=== PATIENT | male | born 1985 | race Caucasian/White ===

== ENCOUNTER 2021-05-13 21:34 | Emergency (ER) | payer MEDICARE | END 2021-05-13 23:54 | disposition home or self-care (01) | LOC: CSHERS 21:34 | DX: R21 Rash and other nonspecific skin eruption (principal) | CPT/HCPCS: 99282 ==

== ENCOUNTER 2021-10-16 09:17 | Outpatient (CLI) | payer MEDICARE | END 2021-10-16 09:18 | disposition home or self-care (01) | LOC: CSHWCC 09:17 | PROVIDERS: ATTEND Nurse Practitioner Family | DX: L89.214 Pressure ulcer of right hip, stage 4 (principal) | CPT/HCPCS: 11043; 97139; 97607; G0463; 99203 ==

== ENCOUNTER 2021-10-29 15:09 | Outpatient (CLI) | payer MEDICARE | END 2021-10-29 15:10 | disposition home or self-care (01) | LOC: CSHWCC 15:09 | PROVIDERS: ATTEND Nurse Practitioner Family | DX: L89.214 Pressure ulcer of right hip, stage 4 (principal) ==

== ENCOUNTER 2021-11-05 15:21 | Outpatient (CLI) | payer MEDICARE | END 2021-11-05 15:22 | disposition home or self-care (01) | LOC: CSHWCC 15:21 | PROVIDERS: ATTEND Nurse Practitioner Family | DX: L89.214 Pressure ulcer of right hip, stage 4 (principal) | CPT/HCPCS: 97607 ==

== ENCOUNTER 2021-11-21 09:21 | Outpatient (CLI) | payer MEDICARE | END 2021-11-21 09:22 | disposition home or self-care (01) | LOC: CSHWCC 09:21 | PROVIDERS: ATTEND Nurse Practitioner Family | DX: L89.214 Pressure ulcer of right hip, stage 4 (principal) | CPT/HCPCS: 87070; 87077; 87186; 87205; 97607; 99212; G0463 ==

== ENCOUNTER 2021-11-27 14:59 | Outpatient (CLI) | payer MEDICARE | END 2021-11-27 15:00 | disposition home or self-care (01) | LOC: CSHWCC 14:59 | PROVIDERS: ATTEND Preventive Medicine Undersea and Hyperbaric Medicine | DX: L89.214 Pressure ulcer of right hip, stage 4 (principal) ==

== ENCOUNTER 2021-12-11 12:59 | Outpatient (CLI) | payer MEDICARE | END 2021-12-11 13:00 | disposition home or self-care (01) | LOC: CSHWCC 12:59 | PROVIDERS: ATTEND Preventive Medicine Undersea and Hyperbaric Medicine | DX: L89.214 Pressure ulcer of right hip, stage 4 (principal); L89.153 Pressure ulcer of sacral region, stage 3 ==

== ENCOUNTER 2022-01-01 13:01 | Outpatient (CLI) | payer MEDICARE, MEDICAID | END 2022-01-01 13:02 | disposition home or self-care (01) | LOC: CSHWCC 13:01 | PROVIDERS: ATTEND Preventive Medicine Undersea and Hyperbaric Medicine | DX: L89.214 Pressure ulcer of right hip, stage 4 (principal); L89.153 Pressure ulcer of sacral region, stage 3; L89.012 Pressure ulcer of right elbow, stage 2 ==

== ENCOUNTER 2022-03-06 08:16 | Outpatient (CLI) | payer MEDICARE, MEDICAID | END 2022-03-06 08:17 | disposition home or self-care (01) | LOC: CSHWCC 08:16 | PROVIDERS: ATTEND Nurse Practitioner Family | DX: L89.214 Pressure ulcer of right hip, stage 4 (principal); L89.153 Pressure ulcer of sacral region, stage 3; L89.012 Pressure ulcer of right elbow, stage 2 | CPT/HCPCS: 11043; 87070; 87077; 87186; 87205; 97139; 97605; G0463; 99213 ==

== ENCOUNTER 2022-03-19 14:17 | Outpatient (CLI) | payer MEDICARE, MEDICAID | END 2022-03-19 14:18 | disposition home or self-care (01) | LOC: CSHWCC 14:17 | PROVIDERS: ATTEND Nurse Practitioner Family | DX: L89.154 Pressure ulcer of sacral region, stage 4 (principal); L89.214 Pressure ulcer of right hip, stage 4; L89.014 Pressure ulcer of right elbow, stage 4 ==

== ENCOUNTER 2022-03-30 04:04 | Emergency (ER) | payer MEDICARE, MEDICAID | END 2022-03-30 08:05 | disposition home or self-care (01) | LOC: CSHERS 04:04 | DX: T83.018A Breakdown (mechanical) of other urinary catheter, initial encounter (principal); E86.0 Dehydration; F17.220 Nicotine dependence, chewing tobacco, uncomplicated | CPT/HCPCS: 51702; 96360; 96361 ==

== ENCOUNTER 2022-04-03 18:47 | Emergency (ER) | payer MEDICARE, MEDICAID ==
[2022-04-03] MEDS ORDERED: Lidocaine Viscous Sol 2% 15 ml UD Cup ONE (20:37)
[2022-04-03] MEDS ORDERED: Lidocaine 4% Topical Sol 50 ML BOT ONE (21:46)
[2022-04-03] MEDS ORDERED: Lidocaine 2% 6 ML SYR ONE (21:46)
[2022-04-03] MEDS ORDERED: Meropenem 500 MG VIAL ONE (21:53)
[2022-04-03] MEDS ORDERED: Iopamidol 30 ML ONE (22:13)
== END 2022-04-03 21:34 | disposition admitted as inpatient to this hospital (09) ==
LOC: CSHERS 18:47
PROC: 0T7D8DZ Dilation of Urethra with Intraluminal Device, Via Natural or Artificial Opening Endoscopic (ICD-10-PCS; principal; 2022-04-03)
PROC: BT0BZZZ Plain Radiography of Bladder and Urethra (ICD-10-PCS; principal; 2022-04-03)
DX: T83.028A Displacement of other urinary catheter, initial encounter (principal); F17.220 Nicotine dependence, chewing tobacco, uncomplicated
CPT/HCPCS: 51600; 52282; 74430; 99285; C1769; 51702; J2185; Q9967

== ENCOUNTER 2022-04-07 20:36 | Inpatient (IN) | payer MEDICARE, MEDICAID ==
[~2022-04-07 20:36] MED LIST: Iopamidol 300 61% 100 ML VIAL FS ONE
[2022-04-07 22:21] LABS: #Monocytes 0.8 10x3/uL (0.0-1.1); #Neutrophils 6.1 10x3/uL (1.5-8.4); %Basophils 0.2 % (0.0-2.0); %Eosinophils 0.1 % (0.0-6.0); %Lymphocytes 25.3 % (18.0-47.0); %Monocytes 8.2 % (0.0-10.0); Hemoglobin 13.8 g/dL (13.5-17.5); Mean Corpuscular HGB CONC 32.2 g/dL (32.0-36.0); Mean Corpuscular Hemoglobin 24.7 pg (27.0-33.0); Mean Corpuscular Volume 76.9 fl (81.2-95.1); Mean Platelet Volume 9.4 fl (7.4-10.4); Platelet Count 348 10x3/uL (150-450); RBC Distribution Width 18.4 % (11.5-14.5); Red Blood Cell (RBC) Count 5.58 10x6/uL (4.32-5.72); White Blood Cell (WBC) Count 9.2 10x3/uL (3.5-10.5)
[2022-04-07 22:35] LABS: ALT (SGPT) 10 U/L (8-55); AST (SGOT) 19 U/L (5-34); Albumin 3.4 g/dL (3.5-5.0); Alkaline Phosphatase 125 U/L (40-110); Anion Gap 11 mmol/L (10-20); BUN (Urea Nitrogen) 10 mg/dL (8.9-20.6); Bilirubin, Total 0.2 mg/dL (0.2-1.2); Calc. Creatinine Clearance 0 mL/min (70-130); Carbon Dioxide 28 mmol/L (22-29); Chloride 104 mmol/L (98-107); Estimated GFR 115; Globulin 4.4 g/dL (2.4-3.5); Glucose 114 mg/dL (70-105); Potassium 3.8 mmol/L (3.5-5.1); Protein, Total 7.8 g/dL (6.0-8.3); Sodium 139 mmol/L (136-145)
[2022-04-07] MEDS ORDERED: cefTRIAXone\\ROCEPHIN 1 GM VIAL ONE (23:28)
[2022-04-07] MEDS ORDERED: Morphine 4 MG/ML VIAL ONE (23:28)
[2022-04-08] MEDS ORDERED: Vancomycin HCl 500 MG VIAL ONE (00:52)
[2022-04-08] MEDS ORDERED: Vancomycin 1 GM VIAL ONE (00:52)
[2022-04-08] MEDS ORDERED: Acetaminophen 325 MG TAB PO PRN (03:39)
[2022-04-08] MEDS ORDERED: Zolpidem Tartrate 5 MG TAB PO PRN (03:39)
[2022-04-08] MEDS ORDERED: Calcium Carbonate 500 MG ChewTAB PO PRN (03:39)
[2022-04-08] MEDS ORDERED: Guaifenesin DM 100-10/5 ML UDCUP PO PRN (03:39)
[2022-04-08] MEDS ORDERED: Senokot S 8.6-50 MG TAB PO PRN (03:39)
[2022-04-08] MEDS ORDERED: Ondansetron PF 4 MG/2 ML Vial IVP PRN (03:39)
[2022-04-08 04:59] VITALS: BMI 24.9
[2022-04-08] MEDS ORDERED: Pharmacy to Dose ABX/VANCOMYCIN IVPB PRN (05:05)
[2022-04-08] MEDS: Morphine 2 MG/ML VIAL SLOW IVP PRN ×4 (05:30→20:50)
[2022-04-08 06:36] LABS: SARS-CoV-2 NAA Rapid Test Not Detected (NotDetected)
[2022-04-08 08:13] LABS: CRP (Inflammatory) 3.11 mg/dL (= or < 0.5)
[2022-04-08] MEDS ORDERED: Cefepime 1 GM in Sodium Chloride 0.9% 100 ML IVPB SCH (09:00)
[2022-04-08] MEDS ORDERED: Baclofen 10 MG TAB PO SCH ×2 (09:00→11:30)
[2022-04-08] MEDS: Famotidine 20 MG TAB PO SCH ×2 (09:09→23:43)
[2022-04-08] MEDS: Gabapentin 300 MG CAP PO SCH ×2 (09:09→20:49)
[2022-04-08] MEDS: HYDROcodone/Acetaminophen 5/325 mg Tablet PO PRN ×2 (11:48→17:40)
[2022-04-08] MEDS: Vancomycin 1.5 GRAM/300 ML BAG 1.5 GM in Premix Bag 1 BAG IVPB SCH (12:00)
[2022-04-08] MEDS: Baclofen 10 MG TAB PO SCH ×2 (14:39→20:50)
[2022-04-08] MEDS ORDERED: Piperacillin/Tazobactam 3.375 GM in Sodium Chloride 0.9% 100 ML IVPB SCH ×2 (17:15→18:00)
[2022-04-08] MEDS: traZODone HCl 50 MG TAB PO PRN (20:49)
[2022-04-08] MEDS: Lorazepam 0.5 MG TAB PO PRN (20:50)
[2022-04-08] MEDS: Piperacillin/Tazobactam 3.375 GM in Sodium Chloride 0.9% 100 ML IVPB SCH (23:44)
[2022-04-09] MEDS: Morphine 2 MG/ML VIAL SLOW IVP PRN ×4 (04:30→18:18)
[2022-04-09] MEDS: Vancomycin 1.5 GRAM/300 ML BAG 1.5 GM in Premix Bag 1 BAG IVPB SCH (04:31)
[2022-04-09] MEDS: Piperacillin/Tazobactam 3.375 GM in Sodium Chloride 0.9% 100 ML IVPB SCH ×3 (06:33→21:21)
[2022-04-09] MEDS: Gabapentin 300 MG CAP PO SCH ×2 (09:50→21:21)
[2022-04-09] MEDS: Famotidine 20 MG TAB PO SCH ×2 (09:51→21:22)
[2022-04-09] MEDS: Baclofen 10 MG TAB PO SCH ×3 (09:51→21:22)
[2022-04-09] MEDS ORDERED: Lidocaine 1% PF 5 ML VIAL ONE (13:01)
[2022-04-09] MEDS ORDERED: Sodium Bicarbonate 2.5 MEQ/5 ML VIAL ONE (13:01)
[2022-04-09 13:53] LABS: Vancomycin, Trough 29.3 ug/mL
[2022-04-09 13:55] LABS: ALT (SGPT) 11 U/L (8-55); AST (SGOT) 21 U/L (5-34); Albumin 3.1 g/dL (3.5-5.0); Alkaline Phosphatase 118 U/L (40-110); Anion Gap 13 mmol/L (10-20); BUN (Urea Nitrogen) 8 mg/dL (8.9-20.6); Bilirubin, Total 0.3 mg/dL (0.2-1.2); Calc. Creatinine Clearance 175 mL/min (70-130); Calcium 8.8 mg/dL (7.8-10.44); Carbon Dioxide 28 mmol/L (22-29); Chloride 104 mmol/L (98-107); Estimated GFR 118; Globulin 3.7 g/dL (2.4-3.5); Glucose 95 mg/dL (70-105); Potassium 4.6 mmol/L (3.5-5.1); Protein, Total 6.8 g/dL (6.0-8.3); Sodium 140 mmol/L (136-145)
[2022-04-09 14:09] LABS: Hemoglobin 12.1 g/dL (13.5-17.5); MDiff Complete? YES; Manual Diff?? YES; Mean Corpuscular HGB CONC 30.9 g/dL (32.0-36.0); Mean Corpuscular Hemoglobin 24.3 pg (27.0-33.0); Mean Corpuscular Volume 78.7 fl (81.2-95.1); Mean Platelet Volume 9.6 fl (7.4-10.4); Platelet Count 249 10x3/uL (150-450); Red Blood Cell (RBC) Count 4.98 10x6/uL (4.32-5.72)
[2022-04-09 14:12] LABS: Band 1 % (5-11); Eosinophils 2 % (0-10); Lymphocytes 25 % (21-51); Monocytes 11 % (0-10); Neutrophil 53 % (42-75); Reactive Lymphocytes 8 % (0-10)
[2022-04-09 14:13] LABS: Anisocytosis SLIGHT = 6-15 cells (100X) (0-5/hpf); Platelet Morphology Comment Appears Adequate
[2022-04-09 14:14] LABS: Macrocytosis SLIGHT = 6-15 cells (100X) (0-5/hpf); Microcytosis SLIGHT = 6-15 cells (100X) (0-5/hpf); Stomatocytes SLIGHT = 2-5 cells (100X) (0-1/hpf); Target Cells SLIGHT = 2-5 cells (100X) (0-1/hpf)
[2022-04-09] MEDS: Lorazepam 0.5 MG TAB PO PRN (21:23)
[2022-04-09] MEDS: traZODone HCl 50 MG TAB PO PRN (21:23)
[2022-04-09] MEDS ORDERED: Morphine 4 MG/ML VIAL SLOW IVP SCH (22:45)
[2022-04-10] MEDS: Morphine 2 MG/ML VIAL SLOW IVP PRN ×3 (04:32→22:04)
[2022-04-10 04:46] LABS: Vancomycin, Random 10.2 ug/mL (See Comment)
[2022-04-10] MEDS: Piperacillin/Tazobactam 3.375 GM in Sodium Chloride 0.9% 100 ML IVPB SCH ×3 (06:32→22:00)
[2022-04-10] MEDS: Vancomycin HCl 1 GM in Sodium Chloride 0.9% 250 ML 250 ML IVPB SCH ×2 (06:33→16:57)
[2022-04-10] MEDS: Famotidine 20 MG TAB PO SCH ×3 (09:28→22:06)
[2022-04-10] MEDS: Gabapentin 300 MG CAP PO SCH ×2 (09:28→21:59)
[2022-04-10] MEDS: Baclofen 10 MG TAB PO SCH ×3 (09:29→21:59)
[2022-04-10] MEDS ORDERED: Morphine 4 MG/ML VIAL SLOW IVP SCH (09:30)
[2022-04-10] MEDS: oxyCODONE 5 MG TAB PO PRN ×2 (12:18→16:56)
[2022-04-10] MEDS: traZODone HCl 50 MG TAB PO PRN (22:29)
[2022-04-10] MEDS: Lorazepam 0.5 MG TAB PO PRN (22:29)
[2022-04-11] MEDS: Vancomycin HCl 1 GM in Sodium Chloride 0.9% 250 ML 250 ML IVPB SCH ×2 (04:25→16:58)
[2022-04-11] MEDS: Morphine 2 MG/ML VIAL SLOW IVP PRN ×5 (04:26→22:12)
[2022-04-11 04:40] LABS: #Eosinphils 0.2 10x3/uL (0.0-0.5); #Monocytes 0.7 10x3/uL (0.0-1.1); #Neutrophils 3.4 10x3/uL (1.5-8.4); %Basophils 0.1 % (0.0-2.0); %Eosinophils 3.1 % (0.0-6.0); %Lymphocytes 40.1 % (18.0-47.0); %Monocytes 9.1 % (0.0-10.0); %Neutrophils 47.5 % (40.0-75.0); Hemoglobin 11.5 g/dL (13.5-17.5); Mean Corpuscular HGB CONC 30.8 g/dL (32.0-36.0); Mean Corpuscular Hemoglobin 24.3 pg (27.0-33.0); Mean Corpuscular Volume 78.7 fl (81.2-95.1); Mean Platelet Volume 9.6 fl (7.4-10.4); Platelet Count 244 10x3/uL (150-450); RBC Distribution Width 17.7 % (11.5-14.5); Red Blood Cell (RBC) Count 4.74 10x6/uL (4.32-5.72); White Blood Cell (WBC) Count 7.1 10x3/uL (3.5-10.5)
[2022-04-11] MEDS: Piperacillin/Tazobactam 3.375 GM in Sodium Chloride 0.9% 100 ML IVPB SCH ×3 (04:41→21:22)
[2022-04-11 04:54] LABS: Anion Gap 12 mmol/L (10-20); BUN (Urea Nitrogen) 9 mg/dL (8.9-20.6); Calc. Creatinine Clearance 175 mL/min (70-130); Calcium 8.8 mg/dL (7.8-10.44); Carbon Dioxide 28 mmol/L (22-29); Chloride 104 mmol/L (98-107); Estimated GFR 118; Glucose 99 mg/dL (70-105); Potassium 4.3 mmol/L (3.5-5.1); Sodium 140 mmol/L (136-145)
[2022-04-11] MEDS: Gabapentin 300 MG CAP PO SCH ×2 (07:24→21:23)
[2022-04-11] MEDS: Baclofen 10 MG TAB PO SCH ×3 (07:24→21:24)
[2022-04-11] MEDS: oxyCODONE 5 MG TAB PO PRN ×4 (07:25→21:29)
[2022-04-11] MEDS: Famotidine 20 MG TAB PO SCH ×2 (07:36→21:55)
[2022-04-11] MEDS: traZODone HCl 50 MG TAB PO PRN (22:13)
[2022-04-11] MEDS: Lorazepam 0.5 MG TAB PO PRN (22:13)
[2022-04-12] MEDS: Morphine 2 MG/ML VIAL SLOW IVP PRN ×5 (02:50→21:05)
[2022-04-12] MEDS: oxyCODONE 5 MG TAB PO PRN ×5 (04:05→22:40)
[2022-04-12] MEDS: Piperacillin/Tazobactam 3.375 GM in Sodium Chloride 0.9% 100 ML IVPB SCH ×3 (05:10→22:41)
[2022-04-12 05:22] LABS: Vancomycin, Trough 16.1 ug/mL
[2022-04-12] MEDS: Vancomycin HCl 1 GM in Sodium Chloride 0.9% 250 ML 250 ML IVPB SCH ×2 (05:38→17:05)
[2022-04-12] MEDS: Baclofen 10 MG TAB PO SCH ×4 (07:50→20:48)
[2022-04-12] MEDS: Gabapentin 300 MG CAP PO SCH ×3 (07:50→20:46)
[2022-04-12] MEDS: Famotidine 20 MG TAB PO SCH ×2 (08:45→20:48)
[2022-04-12] MEDS: traZODone HCl 50 MG TAB PO PRN (21:01)
[2022-04-12] MEDS: Lorazepam 0.5 MG TAB PO PRN (21:01)
[2022-04-13] MEDS: Vancomycin HCl 1 GM in Sodium Chloride 0.9% 250 ML 250 ML IVPB SCH (06:20)
[2022-04-13] MEDS: Piperacillin/Tazobactam 3.375 GM in Sodium Chloride 0.9% 100 ML IVPB SCH ×3 (06:20→21:36)
[2022-04-13] MEDS: Morphine 2 MG/ML VIAL SLOW IVP PRN ×3 (06:21→16:18)
[2022-04-13] MEDS: Famotidine 20 MG TAB PO SCH ×2 (09:45→21:46)
[2022-04-13] MEDS: Gabapentin 300 MG CAP PO SCH ×3 (09:45→21:21)
[2022-04-13] MEDS: Baclofen 10 MG TAB PO SCH ×3 (09:46→18:19)
[2022-04-13] MEDS: oxyCODONE 5 MG TAB PO PRN ×2 (09:46→21:34)
[2022-04-13] MEDS ORDERED: Lidocaine 2% 6 ML SYR TOP PRN (10:44)
[2022-04-13] MEDS: Vancomycin HCl 750 MG in Sodium Chloride 0.9% 250 ML 250 ML IVPB SCH (18:19)
[2022-04-14] MEDS: Baclofen 10 MG TAB PO SCH ×4 (01:14→17:24)
[2022-04-14] MEDS: Morphine 2 MG/ML VIAL SLOW IVP PRN ×5 (01:20→21:47)
[2022-04-14] MEDS: Vancomycin HCl 750 MG in Sodium Chloride 0.9% 250 ML 250 ML IVPB SCH ×2 (05:42→17:18)
[2022-04-14] MEDS: Piperacillin/Tazobactam 3.375 GM in Sodium Chloride 0.9% 100 ML IVPB SCH ×3 (08:32→21:46)
[2022-04-14] MEDS: Gabapentin 300 MG CAP PO SCH ×3 (08:34→21:45)
[2022-04-14] MEDS: Famotidine 20 MG TAB PO SCH ×3 (08:34→21:57)
[2022-04-14] MEDS: oxyCODONE 5 MG TAB PO PRN (12:44)
[2022-04-14] MEDS: Lorazepam 0.5 MG TAB PO PRN (21:46)
[2022-04-14] MEDS: traZODone HCl 50 MG TAB PO PRN (21:46)
[2022-04-15] MEDS: Baclofen 10 MG TAB PO SCH ×4 (01:23→18:28)
[2022-04-15] MEDS: Morphine 2 MG/ML VIAL SLOW IVP PRN ×3 (05:26→18:25)
[2022-04-15 05:40] LABS: Vancomycin, Trough 15.2 ug/mL
[2022-04-15] MEDS: Vancomycin HCl 750 MG in Sodium Chloride 0.9% 250 ML 250 ML IVPB SCH ×2 (05:59→18:25)
[2022-04-15] MEDS: Piperacillin/Tazobactam 3.375 GM in Sodium Chloride 0.9% 100 ML IVPB SCH ×3 (07:19→22:36)
[2022-04-15] MEDS: Gabapentin 300 MG CAP PO SCH ×3 (07:59→20:04)
[2022-04-15] MEDS: oxyCODONE 5 MG TAB PO PRN ×2 (08:01→13:50)
[2022-04-15] MEDS: Famotidine 20 MG TAB PO SCH ×2 (08:02→20:07)
[2022-04-15] MEDS ORDERED: Naloxone HCl 0.4 mg/ml Vial IV PRN (18:12)
[2022-04-15] MEDS ORDERED: Piperacillin/Tazobactam 3.375 GM VIAL ONE (19:59)
[2022-04-15] MEDS ORDERED: Sodium Chloride 0.9% 100 ML ONE (19:59)
[2022-04-15] MEDS: oxyCODONE 5 MG TAB PO SCH (20:04)
[2022-04-15] MEDS: Lorazepam 0.5 MG TAB PO PRN (20:12)
[2022-04-15] MEDS: traZODone HCl 50 MG TAB PO PRN (20:12)
[2022-04-16] MEDS: Morphine 2 MG/ML VIAL SLOW IVP PRN ×4 (01:33→23:33)
[2022-04-16] MEDS: Baclofen 10 MG TAB PO SCH ×4 (01:34→18:41)
[2022-04-16] MEDS: oxyCODONE 5 MG TAB PO SCH ×4 (02:55→22:36)
[2022-04-16] MEDS: Piperacillin/Tazobactam 3.375 GM in Sodium Chloride 0.9% 100 ML IVPB SCH ×3 (05:48→22:37)
[2022-04-16] MEDS: Vancomycin HCl 750 MG in Sodium Chloride 0.9% 250 ML 250 ML IVPB SCH ×2 (05:49→18:41)
[2022-04-16] MEDS: Famotidine 20 MG TAB PO SCH ×2 (07:31→22:36)
[2022-04-16] MEDS: Gabapentin 300 MG CAP PO SCH ×3 (10:11→22:36)
[2022-04-16 17:34] LABS: Vancomycin, Trough 14.8 ug/mL
[2022-04-16] MEDS: traZODone HCl 50 MG TAB PO PRN (22:37)
[2022-04-16] MEDS: Lorazepam 0.5 MG TAB PO PRN (22:37)
[2022-04-17] MEDS: Baclofen 10 MG TAB PO SCH ×4 (01:13→19:38)
[2022-04-17] MEDS: oxyCODONE 5 MG TAB PO SCH ×4 (02:39→20:47)
[2022-04-17] MEDS: Piperacillin/Tazobactam 3.375 GM in Sodium Chloride 0.9% 100 ML IVPB SCH ×3 (05:27→21:49)
[2022-04-17] MEDS: Vancomycin HCl 750 MG in Sodium Chloride 0.9% 250 ML 250 ML IVPB SCH ×2 (05:28→19:37)
[2022-04-17] MEDS: Famotidine 20 MG TAB PO SCH ×3 (07:53→20:48)
[2022-04-17] MEDS: Gabapentin 300 MG CAP PO SCH ×3 (07:55→20:46)
[2022-04-17] MEDS: Morphine 2 MG/ML VIAL SLOW IVP PRN (09:21)
[2022-04-17] MEDS: traZODone HCl 50 MG TAB PO PRN (20:53)
[2022-04-17] MEDS: Lorazepam 0.5 MG TAB PO PRN (20:53)
[2022-04-18] MEDS: Baclofen 10 MG TAB PO SCH ×3 (01:31→14:18)
[2022-04-18] MEDS: oxyCODONE 5 MG TAB PO SCH ×2 (01:33→07:33)
[2022-04-18] MEDS: Vancomycin HCl 750 MG in Sodium Chloride 0.9% 250 ML 250 ML IVPB SCH (05:39)
[2022-04-18] MEDS: Piperacillin/Tazobactam 3.375 GM in Sodium Chloride 0.9% 100 ML IVPB SCH (07:17)
[2022-04-18] MEDS: Gabapentin 300 MG CAP PO SCH ×2 (09:06→09:09)
[2022-04-18] MEDS: Famotidine 20 MG TAB PO SCH (09:07)
[2022-04-18] MEDS: Morphine 2 MG/ML VIAL SLOW IVP PRN (09:15)
[2022-04-18 11:01] VITALS: BP 128/68; TEMP 98.4
== END 2022-04-18 10:37 | disposition short-term general hospital (02) | DRG 539 ==
LOC: CSHERS 20:36 → CSHTELE 04-08 04:01
PROVIDERS: ADMIT Student in an Organized Health Care Education/Training Program; ATTEND Family Medicine
PROC: 02HV33Z Insertion of Infusion Device into Superior Vena Cava, Percutaneous Approach (ICD-10-PCS; principal; 2022-04-09)
PROC: B5181ZA Fluoroscopy of Superior Vena Cava using Low Osmolar Contrast, Guidance (ICD-10-PCS; 2022-04-09)
PROC: B548ZZA Ultrasonography of Superior Vena Cava, Guidance (ICD-10-PCS; 2022-04-09)
DX: M86.151 Other acute osteomyelitis, right femur (principal); L89.013 Pressure ulcer of right elbow, stage 3; L89.214 Pressure ulcer of right hip, stage 4; G82.20 Paraplegia, unspecified; N31.9 Neuromuscular dysfunction of bladder, unspecified; G89.4 Chronic pain syndrome; Z20.822 Contact with and (suspected) exposure to COVID-19; L89.152 Pressure ulcer of sacral region, stage 2; Z98.890 Other specified postprocedural states
CPT/HCPCS: 36415; 36569; 72193; 80048; 80053; 80202; 83605; 85025; 85652; 86140; 87040; 87086; 87811; 96365; 96366; 96375; 97139; C1751; J0692; J0696; J1650; J2270; J2272; J2543; J3370; J3490; J7050; Q9967; U0002

== ENCOUNTER 2022-05-26 13:04 | Outpatient (CLI) | payer MEDICARE, MEDICAID | END 2022-05-26 13:05 | disposition home or self-care (01) | LOC: CSHWCC 13:04 | PROVIDERS: ATTEND Nurse Practitioner Family | DX: L89.154 Pressure ulcer of sacral region, stage 4 (principal) | CPT/HCPCS: 97607 ==

== ENCOUNTER 2022-06-23 12:59 | Outpatient (CLI) | payer MEDICARE, MEDICAID | END 2022-06-23 13:00 | disposition home or self-care (01) | LOC: CSHWCC 12:59 | PROVIDERS: ATTEND Nurse Practitioner Family | DX: L89.154 Pressure ulcer of sacral region, stage 4 (principal); L89.214 Pressure ulcer of right hip, stage 4; L89.014 Pressure ulcer of right elbow, stage 4 ==

== ENCOUNTER 2022-07-22 13:40 | Outpatient (CLI) | payer MEDICARE, MEDICAID | END 2022-07-22 13:41 | disposition home or self-care (01) | LOC: CSHWCC 13:40 | PROVIDERS: ATTEND Nurse Practitioner Family | DX: L89.154 Pressure ulcer of sacral region, stage 4 (principal); L89.214 Pressure ulcer of right hip, stage 4; L89.014 Pressure ulcer of right elbow, stage 4 | CPT/HCPCS: 97605 ==

== ENCOUNTER 2022-08-26 09:09 | Outpatient (CLI) | payer MEDICARE, MEDICAID | END 2022-08-26 09:10 | disposition home or self-care (01) | LOC: CSHWCC 09:09 | PROVIDERS: ATTEND Nurse Practitioner Family | DX: L89.154 Pressure ulcer of sacral region, stage 4 (principal); L89.214 Pressure ulcer of right hip, stage 4; L89.014 Pressure ulcer of right elbow, stage 4 | CPT/HCPCS: 87070; 87205; 99213; G0463 ==